=== PATIENT | female | born 1960 | race Caucasian/White ===

== ENCOUNTER 2022-07-31 08:02 | Outpatient (CLI) | payer OTHER, SELFPAY ==
[2022-07-31 11:15] LABS: Cholesterol* 185 mg/dL (90-199); Triglycerides* 175 mg/dL (40-149)
[2022-07-31 11:16] LABS: HDL Cholesterol* 54 mg/dL (>=50); LDL Cholesterol Calculated 96 mg/dL (<100)
== END 2022-07-31 08:03 | disposition home or self-care (01) ==
LOC: NFLDREF 08:02
PROVIDERS: PCP Internal Medicine; Visit Provider Internal Medicine
DX: E78.5 Hyperlipidemia, unspecified (principal)
CPT/HCPCS: 80061

== ENCOUNTER 2023-12-23 15:43 | Outpatient (CLI) | payer MEDICARE, BC, SELFPAY ==
--- OUTSIDE RECORDS SUMMARY | 2023-12-23 16:00 | XMS_ITS ---
Author Name Unknown Organization [facility] Address [address] [place] [address] Care Team Providers Care Retail Product Advisor Name Role Phone Unavailable Unavailable Unavailable Surgery Details Not on file Complications Check Surgery Details section. Procedure Estimated Blood Loss Check Surgery Details section. Procedure Findings Check Surgery Details section. Procedure Specimens Taken Check Surgery Details section.
--- OUTSIDE RECORDS SUMMARY | 2023-12-23 16:00 | XMS_ITS | Clinical Summary ---
Author Name Unknown Organization [facility] Address [address] [place] [address] Care Team Providers Care Chief Port Director Name Role Phone Elsewhere, Pcp Primary Care Provider Unavailabl e Source Comments Patient records contain information from all sites at [facility]. For routine questions regarding patient records, call [phone] during business hours, M-F 8:00 AM - 5:00 PM Central Time. Record requests for emergency care only can be directed to [phone] at any time.[facility] Allergies Active Allergy Reactions Criticality Noted Date Comments Tdajitj-Jjb-Yce Reductase Inhibitors Myalgia 01/30/2011 Medications Medication Sig Dispensed Refills Start Date End Date Status naratriptan (for_AMERGE) 2.5 mg tablet TAKE 1 TABLET BY MOUTH 1 TIME NEEDED FOR MIGRAINE HEADACHE. MARCH REPEAT 1 TIME IN 4 HOURS NEEDED 9 tablet 0 11/29/2017 Active atorvastatin (for_LIPITOR) 20 mg tablet Take 1 tablet (20 mg total) by mouth once daily. 90 tablet 3 01/10/2018 Active co-enzyme Q-10 (for_CO Q-10) 100 mg capsule Take 1 capsule by mouth daily. 0 01/31/2011 Active famotidine (for_PEPCID) 20 mg tablet Take 1 tablet by mouth 2 (two) times a day. 0 09/14/2012 Active atenolol (for_TENORMIN) 25 mg tablet Take 0.5 tablets by mouth daily. 0 09/14/2012 Active omega-3 fatty acids (FISH OIL CONCENTRATE) 1,000 mg capsule Take 1 capsule by mouth daily. 0 03/25/2015 Active levothyroxine (for_SYNTHROID, LEVOTHROID) 50 mcg tablet Take 1 tablet by mouth daily. 0 11/02/2016 Active Immunizations Name Administration Dates Next Due Influenza Split 09/05/2010 Influenza, Unspecified 08/25/2016,09/16/2015,11/2012,09/07/2012 Tdap 06/22/2011 Family History Medical History Relation Name Comments Parkinsons disease Father Parkinsons disease Grandfather Hyperlipidemia Mother Breast cancer Mother's Sister Breast cancer Paternal Grandmother Relation Name Status Comments Father Grandfather Mother Mother's Sister Age 63 Paternal Grandmother Age 80s Social History Tobacco Use Types Packs/Day Years Used Date Smoking Tobacco: Never Nutrition Answer Date Recorded Nutrition: EVOO Fat Source Unknown 01/21 Nutrition: Servings of Fruits/Vegetables per Day Not on file 01/21/2021 Dental Answer Date Recorded Dental: Regular Dentist Unknown 01/22/20 21 Sex and Gender Information Value Date Recorded Sex Assigned at Not on file Gender Identity Not on file Sexual Orientation Not on file Last Filed Vital Signs Vital Sign Reading Time Taken Comments Blood Pressure 123/80 12/17/2016 8:51 AM SINGING TEACHER Pulse 76 12/17/2016 8:51 AM SINGING TEACHER Temperature - - Respiratory Rate 16 12/17/2016 8:51 AM SINGING TEACHER Oxygen Saturation - - Inhaled Oxygen Concentration - - Weight 68.7 kg (151 lb 7.3 oz) 12/17/2016 8:51 A M SINGING TEACHER Height 167 cm (5' 5.75) 05/11/2017 8:06 AM CDT Body Mass Index 24.63 12/17/2016 8:51 AM SINGING TEACHER Plan of Treatment Health Maintenance Due Date Last Done Comments Bone Density Scan (Osteoporo sis Screen) 1958 CT Colonography 1958 FIT 1958 HIV Screening 1960 Hepatitis C Screening 1960 Thyroid Stimulating Hormone (TSH) test for thyroid function 05/11/2018 05/11/2017, 04/30/2016, 11/01/2014 Fasting Glucose for Diabetes Screening 04/30/2019 04/30/2016, 03/16/2013 Colonoscopy 05/06/2019 05/06/2009, 08/22 (Performed elsewhere) Cervical Cancer Screening 12/13/20202015, 09/15/2012, 10/11/2010 (Performed elsewhere) Influenza Vaccine (#1) 2023 2, 09/28/2021, 09/11/2020, Additional history exists Depression Screening (Annual PHQ-2) 11/22/2023 Fall Risk Screen (Annual) 11/22/2023 Mammogram 05/17/2024 05/17/2023, 04/23, 03/25/2021, Additional history exists Cologuard 04/27/2025 04/27/2022 Colorectal Cancer Screening 04/27/2025 DTaP,Tdap,and Td Vaccines (4 - Td or Tdap) 04/10/2031 04/10/2021, 07/08/2011, 06/22/2011 Zoster Vaccines Completed 10/06/2021, 07/29/2021 Pneumococcal vaccine (65+ years) Completed 04/13/20 23 COVID-19 Vaccine Completed 09/08/2023, , 04/03/2022, Additional history exists Advance Directives For more information, please contact: [phone] Documents on File Type Date Recorded Patient Wader Boot Top Assembler Expl anation Advance Directives 02/02/2011 12:00 AM Leg acy document. See document viewer. Advance Directives 02/02/2011 12:00 AM Leg acy document. See document viewer. Care Teams Chief Port Director Relationship Specialty Start Date End Date Elsewhere, Pcp PCP - General Family Medicine 04/23/21
--- OUTSIDE RECORDS SUMMARY | 2023-12-23 16:00 | XMS_ITS | Referral Summary ---
Author Name Unknown Organization [facility] Address [address] [place] [address] Care Team Providers Care Agricultural Engineering Technologist Name Role Phone Elsewhere, Pcp Primary Care Provider Unavailabl e Source Comments Patient records contain information from all sites at [facility]. For routine questions regarding patient records, call [phone] during business hours, M-F 8:00 AM - 5:00 PM Central Time. Record requests for emergency care only can be directed to [phone] at any time.[facility] Allergies Active Allergy Reactions Criticality Noted Date Comments Miyrmdb-Dtb-Jmh Reductase Inhibitors Myalgia 01/30/2011 Medications Medication Sig [...] Split 09/05/2010 Influenza, Unspecified 08/25/2016,09/16/2015,11/2012,09/07/2012 Tdap 06/22/2011 Social History Tobacco Use Types Packs/Day Years [...] Comments Blood Pressure 123/80 12/17/2016 8:51 AM MANAGER MEDICAID Pulse 76 12/17/2016 8:51 AM MANAGER MEDICAID Temperature - - Respiratory Rate 16 12/17/2016 8:51 AM MANAGER MEDICAID Oxygen Saturation - - Inhaled Oxygen Concentration - - Weight 68.7 kg (151 lb 7.3 oz) 12/17/2016 8:51 A M MANAGER MEDICAID Height 167 cm (5' 5.75) 05/11/2017 8:06 AM CDT Body Mass Index 24.63 12/17/2016 8:51 AM MANAGER MEDICAID Plan of Treatment Not on file Advance Directives For more information, please contact: [phone] Documents on File Type Date Recorded Patient Nurse Executive Expl anation Advance Directives 02/02/2011 12:00 AM Leg acy document. See document viewer. Advance Directives 02/02/2011 12:00 AM Leg acy document. See document viewer. Care Teams Agricultural Engineering Technologist Relationship Specialty Start Date End Date Elsewhere, Pcp PCP - General Family Medicine 04/23/21
--- OUTSIDE RECORDS SUMMARY | 2023-12-23 16:01 | XMS_ITS | Encounter Summary ---
Author Name Unknown Organization [facility] Address [address] [place] [address] Care Team Providers Care Tyre Retreader Name Role Phone Elsewhere, Pcp Primary Care Provider Unavailabl e Reason for Referral * Outpatient (Routine) - Closed Specialty Diagnoses / Procedures Referred By Maria ferrari Referred To Contact Diagnoses Screening Mammogram Breast Cancer Procedures BI Breast Screening Bilateral with Tomosynthesis Willem Webb M.B.B.S. [address] [place] [address] [facility] Referral ID Status Reason Start Date Expiration Date Visits Re quested Visits Authorized [id number] Closed 04/15/2023 04/14/2024 1 1 Reason for Visit * Outpatient (Routine) - Closed Specialty Diagnoses / Procedures Referred By Maria ferrrai Referred To Contact Diagnoses Screening Mammogram Breast Cancer Procedures BI Breast Screening Bilateral with Tomosynthesis Willem Webb M.B.B.S. [address] [place] [address] [facility] Referral ID Status Reason Start Date Expiration Date Visits Re quested Visits Authorized [id number] Closed 04/15/2023 04/14/2024 1 1 Encounter Details Date Type Department Care Team (Latest Contact Info) Description 05/17/2023 9:45 AM CDT - 05/17/2023 11:59 PM CDT Hospital Encounter Department of Radiology in [address] [id number] Willem Webb M.B.B.S. [address] [facility] [place] [phone] Screening Mammogram Breast Cancer Discharge Disposition: Home or Self Care Social History Tobacco Use Types Packs/Day Years [...] on file Sexual Orientation Not on file documented as of this encounter Medications at Time of Discharge Medication Sig Dispensed Refills Start Date End Date atenolol (for_TENORMIN) 25 mg tablet Take 0.5 tablets by mouth daily. 0 09/14/2012 co-enzyme Q-10 (for_CO Q-10) 100 mg capsule Take 1 capsule by mouth daily. 0 01/31/2011 famotidine (for_PEPCID) 20 mg tablet Take 1 tablet by mouth 2 (two) times a day. 0 09/14/2012 levothyroxine (for_SYNTHROID, LEVOTHROID) 50 mcg tablet Take 1 tablet by mouth daily. 0 11/02/2016 naratriptan (for_AMERGE) 2.5 mg tablet TAKE 1 TABLET BY MOUTH 1 TIME NEEDED FOR MIGRAINE HEADACHE. MARCH REPEAT 1 TIME IN 4 HOURS NEEDED 9 tablet 0 11/29/2017 omega-3 fatty acids (FISH OIL CONCENTRATE) 1,000 mg capsule Take 1 capsule by mouth daily. 0 03/25/2015 documented as of this encounter Plan of Treatment Not on file documented as of this encounter Procedures Procedure Name Priority Date/Time Associated Diagnosis Comments BI BREAST SCREENING BILATERAL WITH TOMOSYNTHESIS RAD - Routine (most inpatients and all outpatients) 05/17/2023 10:08 AM CDT Screening Mammogram Breast Cancer documented in this encounter Results * BI Breast Screening Bilateral with Tomosynthesis (05/17/2023 10:08 AM CDT) Anatomical Region Laterality Modality Breast, Breast Imaging RST L OS, Breast Imaging ARZ LOS, Breast Imaging FLA LOS Bilateral Mammography 05/17/2023 12:0 9 PM CDT Impressions 05/17/2023 12:10 PM CDT Negative. RECOMMENDATION: ??Annual Screening Mammogram ASSESSMENT: ??BI-RADS: 1: Negative. Narrative 05/17/2023 12:10 PM CDT EXAM: ??BI BREAST SCREENING BILATERAL WITH TOMOSYNTHESIS Current study was evaluated with a Computer Aided Detection (CAD) system. INDICATION: ??Screening mammogram. COMPARISON: ??Prior exam(s) were available and reviewed for comparison. DENSITY: ??b. There are scattered areas of fibroglandular density. FINDINGS: ??No mammographic findings of malignancy. Procedure Note Gregor Delgadillo M.D. - 05/17/2023 EXAM: BI BREAST SCREENING BILATERAL WITH TOMOSYNTHESIS Current study was evaluated with a Computer Aided Detection (CAD) system. INDICATION: Screening mammogram. COMPARISON: Prior exam(s) were available and reviewed for comparison. DENSITY: b. There are scattered areas of fibroglandular density. FINDINGS: No mammographic findings of malignancy. IMPRESSION: Negative. RECOMMENDATION: Annual Screening Mammogram ASSESSMENT: BI-RADS: 1: Negative. Willem Lyn IMG BI PROCEDU RES documented in this encounter Visit Diagnoses Diagnosis Screening Mammogram Breast Cancer documented in this encounter Care Teams Tyre Retreader Relationship Specialty Start Date End Date Elsewhere, Pcp PCP - General Family Medicine 04/23/21 documented as of this encounter
--- OUTSIDE RECORDS SUMMARY | 2023-12-23 16:01 | XMS_ITS | Encounter Summary ---
Author Name Unknown Organization [facility] Address [address] [place] [address] Care Team Providers Care Motor Generator Set Operator Name Role Phone Elsewhere, Pcp Primary Care Provider Unavailabl e Encounter Details Date Type Department Care Team (Late st Contact Info) Description 03/09/2011 Historical Ophthalmology RST OPH Hipolito Peralta O.D. [address] [place] [address] Social History Tobacco Use Types Packs/Day Years Used Date Smoking Tobacco: Never Assessed Sex and Gender Information Value Date Recorded Sex Assigned at Not on file Gender Identity Not on file Sexual Orientation Not on file documented as of this encounter Progress Notes * Hipolito Peralta O.D. - 03/09/2011 1:13 PM CDT Eye General CHIEF COMPLAINT floaters/last exam 1 year ago HISTORY OF PRESENT ILLNESS Patient reports no change in vision. Patient denies pain, flashes or diplopia. Floaters alone; both eyes; x 1 year; on and off-no new floaters. IMPRESSION / REPORT / PLAN #1 Vitreous floaters Discussed signs and symptoms of retinal tear and detachment and the need for prompt evaluation should this occur #2 Refractive error Gave copy of manifest Rx DIAGNOSIS #1 Vitreous floaters #2 Refractive error CDM Reports - EYEGEN Id: [id number] Status: Fnl documented in this encounter Plan of Treatment Not on file documented as of this encounter Visit Diagnoses Not on filedocumented in this encounter Additional Health Concerns Infection Onset Date Last Indicated Resolved Time COVID19 Pending 10/04/2020 10/04/2020 10/05/2020 5 :19 PM LEATHER CARVER COVID19 Pending 10/21/2020 10/21/2020 10/22/2020 9 :10 AM LEATHER CARVER COVID19 Pending 10/21/2020 10/21/2020 10/23/2020 6 :52 AM LEATHER CARVER documented as of this encounter Care Teams Motor Generator Set Operator Relationship Specialty Start Date End Date Elsewhere, Pcp PCP - General Family Medicine 04/23/21 documented as of this encounter
== END 2023-12-23 15:44 | disposition home or self-care (01) ==
PROVIDERS: PCP Internal Medicine; Visit Provider Internal Medicine
DX: E03.8 Other specified hypothyroidism (principal); I10 Essential (primary) hypertension; Z13.21 Encounter for screening for nutritional disorder
CPT/HCPCS: 80053; 82550; 82607; 83735; 84439; 84443; 84481

== ENCOUNTER 2024-04-11 07:32 | Outpatient (CLI) | payer MEDICARE, BC, SELFPAY ==
--- OUTSIDE RECORDS SUMMARY | 2024-04-29 21:30 | XMS_ITS | Clinical Summary ---
Author Organization [facility] Address [address] [place] [address] Care Team Providers Care Client Technical Specialist Name Role Phone Elsewhere, Pcp Primary Care Provider Unavailabl e Source Comments Patient records contain information from all sites at [facility]. For routine questions regarding patient records, call [phone] during business hours, M-F 8:00 AM - 5:00 PM Central Time. Record requests for emergency care only can be directed to [phone] at any time.[facility] Allergies Active Allergy Reactions Criticality Noted Date Comments Krcfqvm-Rtb-Rmp Reductase Inhibitors Myalgia 01/30/2011 Medications Medication Sig Dispensed Refills Start Date End Date Status naratriptan (for_AMERGE) 2.5 mg tablet TAKE 1 TABLET BY MOUTH 1 TIME NEEDED FOR MIGRAINE HEADACHE. MARCH REPEAT 1 TIME IN 4 HOURS NEEDED 9 tablet 11/29/2017 Active atorvastatin (for_LIPITOR) 20 mg tablet Take 1 tablet (20 mg total) by mouth once daily. 90 tablet 3 01/10/2018 Active co-enzyme Q-10 (for_CO Q-10) 100 mg capsule Take 1 capsule by mouth daily. 01/31/2011 Active famotidine (for_PEPCID) 20 mg tablet Take 1 tablet by mouth 2 (two) times a day. 09/14/2012 Active atenolol (for_TENORMIN) 25 mg tablet Take 0.5 tablets by mouth daily. 09/14/2012 Active omega-3 fatty acids (FISH OIL CONCENTRATE) 1,000 mg capsule Take 1 capsule by mouth daily. 03/25/2015 Active levothyroxine (for_SYNTHROID, LEVOTHROID) 50 mcg tablet Take 1 tablet by mouth daily. 11/02/2016 Active Immunizations Name Administration Dates Next [...] Comments Blood Pressure 123/80 12/17/2016 8:51 AM BUDGET OFFICER Pulse 76 12/17/2016 8:51 AM BUDGET OFFICER Temperature - - Respiratory Rate 16 12/17/2016 8:51 AM BUDGET OFFICER Oxygen Saturation - - Inhaled Oxygen Concentration - - Weight 68.7 kg (151 lb 7.3 oz) 12/17/2016 8:51 A M BUDGET OFFICER Height 167 cm (5' 5.75) 05/11/2017 8:06 AM CDT Body Mass Index 24.63 12/17/2016 8:51 AM BUDGET OFFICER Plan of Treatment Health Maintenance Due Date Last Done Comments Bone Density Scan (Osteoporo sis Screen) 1958 CT Colonography 1958 FIT 1960 Hepatitis C Screening 1960 Thyroid Stimulating Hormone (TSH) test for thyroid function 05/11/2018 05/11/2017, 04/30/2016, 11/01/2014 Fasting Glucose for Diabetes Screening 04/30/2019 04/30/2016, 03/16/2013 Colonoscopy 05/06/2019 05/06/2009, 08/22 (Performed elsewhere) Cervical Cancer Screening 12/13/20202015, 09/15/2012, 10/11/2010 (Performed elsewhere) Influenza Vaccine (#1) 2023 2, 09/28/2021, 09/11/2020, Additional history exists Depression Screening (Annual PHQ-2) 11/22/2023 Fall Risk Screen (Annual) 11/22/2023 COVID-19 Vaccine (7 2022-2 4 season) 2024 09/08/2023, 09/17/2022, 04/03/2022, Additional history exists Mammogram 05/17/2024 05/17/2023, 0602/2022, 03/25/2021, Additional history exists Cologuard 04/27/2025 04/27/2022 Colorectal Cancer Screening 04/27/2025 DTaP,Tdap,and Td Vaccines (4 - Td or Tdap) 04/10/2031 04/10/2021, 07/08/2011, 06/22/2011 Zoster Vaccines Completed 10/06/2021, 07/29/2021 Pneumococcal vaccine (65+ years) Completed 04/13/20 23 Procedures Procedure Name Priority Date/Time Associated Diagnosis Comments BI BREAST SCREENING BILATERAL WITH TOMOSYNTHESIS RAD - Routine (most inpatients and all outpatients) 05/17/2023 10:08 AM CDT Screening Mammogram Breast Cancer THYROID-STIMULATING HORMONE-SENSITIVE (S-TSH) Routine 05/11/2017 8:16 AM CDT GLUCOSE, FASTING, S/P Routine 04/30/2016 8:04 AM CDT THINPREP SCREEN HPV REFLEX Routine 12/13/2015 12:52 PM BUDGET OFFICER from Last 3 Months or Most Recently Relevant to Health Maintenance Results * BI Breast Screening Bilateral with [...] Mammogram ASSESSMENT: BI-RADS: 1: Negative. Willem Lyn [facility] BI PROCEDU RES * S-TSH (Thyroid-Stimulating Hormone - Sensitive) (05/11/2017 8:16 AM CDT) TSH (Thyrotropin) 2.28 0.27 - 4.20 MIUL POWERCHART Comment: Biotin has been identified by the machine washer as a potential interfering substance. Higher concentrations of biotin may be found in multivitamins, hair/nail supplements, and workout supplements. If the result does not match clinical observations, repeat testing after patient refrains from the use of supplements for at least 12 hours. Blood 05/11/2017 8:16 AM CDT Violet Peres APRN, C.N.P. LAB BLOOD ADD-ON POWERCHART * Glucose, Fasting (04/30/2016 8:04 AM CDT) Glucose, Fasting, S 89 70 - 99 MGDL POWERCHART Blood 04/30/2016 8:04 AM CDT Violet Peres APRN, C.N.P. LAB BLOOD NON ADD-ON POWERCHART * Pathology ThinPrep Screen HPV Reflex (12/13/2015 12:52 PM BUDGET OFFICER) [facility] [id number] POWERCHART HXFinal Diagnosis-[place] See Comment POWERCHART Comment: A. ??ThinPrep Pap Test Screen (Cervical/Endocervical HPV >= 30 years old): Satisfactory for evaluation. Scanty cellularity. Negative for intraepithelial lesion or malignancy. High Risk HPV testing results are NEGATIVE. See specific genotype results below. HPV with Genotyping, PCR, ThinPrep: HPV High Risk Type 16, PCR: ??NEGATIVE HPV High Risk Type 18, PCR: ??NEGATIVE HPV other High Risk types, PCR: ??NEGATIVE Other High Risk HPV types include: ??31, 33, 35, 39, 45, 51, 52, 56, 58, 59, 66, and 68. [facility] See Comment POWERCHART Comment: Report electronically signed by Ady Dominguez, SCT(ASCP) 12/24/2015 10:07 Interpreted by: Dev Grady, MEREDITH(ASCP) Cervix/Endocervix 12/13/2015 12:52 PM BUDGET OFFICER Violet Peres APRN, C.N.P. LAB PAP P ATHDX ORDERABLES POWERCHART from Last 3 Months or Most Recently Relevant to Health Maintenance Advance Directives For more information, please contact: [phone] Documents on File Type Date Recorded Patient Collar Turner Operator Expl anation Advance Directives 02/02/2011 12:00 AM Leg acy document. See document viewer. Advance Directives 02/02/2011 12:00 AM Leg acy document. See document viewer. Care Teams Client Technical Specialist Relationship Specialty Start Date End Date Elsewhere, Pcp PCP - General Family Medicine 04/23/21
--- OUTSIDE RECORDS SUMMARY | 2024-04-29 21:30 | XMS_ITS ---
Author Organization [facility] Address [address] [place] [address] Care Team Providers Care Utility Maintenance Worker Name Role Phone Unavailable Unavailable Unavailable Surgery Details Not on file Complications Check Surgery Details section. Procedure Estimated Blood Loss Check Surgery Details section. Procedure Findings Check Surgery Details section. Procedure Specimens Taken Check Surgery Details section.
--- OUTSIDE RECORDS SUMMARY | 2024-04-29 21:30 | XMS_ITS | Encounter Summary ---
Author Organization [facility] Address [address] [place] [address] Care Team Providers Care Rotary Furnace Tender Name Role Phone Elsewhere, Pcp Primary Care Provider Unavailabl e Encounter Details Date Type Department Care Team (Late st Contact Info) Description 03/09/2011 Historical Ophthalmology RST OPH Hipolito Peralta O.D. [address] [place] [address] Social History Tobacco Use Types Packs/Day Years [...] Refractive error CDM Reports - EYEGEN Id: [id number] Status: Fnl documented in this encounter Plan of Treatment Not on file documented as of this encounter Visit Diagnoses Not on filedocumented in this encounter Additional Health Concerns Infection Onset Date Last Indicated Resolved Time COVID19 Pending 10/04/2020 10/04/2020 10/05/2020 5 :19 PM ENOLOGIST COVID19 Pending 10/21/2020 10/21/2020 10/22/2020 9 :10 AM ENOLOGIST COVID19 Pending 10/21/2020 10/21/2020 10/23/2020 6 :52 AM ENOLOGIST documented as of this encounter Care Teams Rotary Furnace Tender Relationship Specialty Start Date End Date Elsewhere, Pcp PCP - General Family Medicine 04/23/21 documented as of this encounter
--- OUTSIDE RECORDS SUMMARY | 2024-04-29 21:30 | XMS_ITS | Referral Summary ---
Author Organization [facility] Address [address] [place] [address] Care Team Providers Care Qualifications Examiner Name Role Phone Elsewhere, Pcp Primary Care Provider Unavailabl e Source Comments Patient records contain information from all sites at [facility]. For routine questions regarding patient records, call [phone] during business hours, M-F 8:00 AM - 5:00 PM Central Time. Record requests for emergency care only can be directed to [phone] at any time.[facility] Allergies Active Allergy Reactions Criticality Noted Date Comments Hcxkjvb-Ipm-Oox Reductase Inhibitors Myalgia 01/30/2011 Medications Medication Sig [...] Comments Blood Pressure 123/80 12/17/2016 8:51 AM EYE SURGEON Pulse 76 12/17/2016 8:51 AM EYE SURGEON Temperature - - Respiratory Rate 16 12/17/2016 8:51 AM EYE SURGEON Oxygen Saturation - - Inhaled Oxygen Concentration - - Weight 68.7 kg (151 lb 7.3 oz) 12/17/2016 8:51 A M EYE SURGEON Height 167 cm (5' 5.75) 05/11/2017 8:06 AM CDT Body Mass Index 24.63 12/17/2016 8:51 AM EYE SURGEON Plan of Treatment Not on file Procedures Procedure Name Priority Date/Time Associated Diagnosis Comments BI BREAST SCREENING BILATERAL WITH TOMOSYNTHESIS RAD - Routine (most inpatients and all outpatients) 05/17/2023 10:08 AM CDT Screening Mammogram Breast Cancer THYROID-STIMULATING HORMONE-SENSITIVE (S-TSH) Routine 05/11/2017 8:16 AM CDT GLUCOSE, FASTING, S/P Routine 04/30/2016 8:04 AM CDT THINPREP SCREEN HPV REFLEX Routine 12/13/2015 12:52 PM EYE SURGEON from Last 3 Months or Most Recently [...] Mammogram ASSESSMENT: BI-RADS: 1: Negative. Willem Lyn [facility] BI PROCEDU RES * S-TSH (Thyroid-Stimulating Hormone - Sensitive) (05/11/2017 8:16 AM CDT) TSH (Thyrotropin) 2.28 0.27 - 4.20 MIUL POWERCHART Comment: Biotin has been identified by the nozzle operator as a potential interfering substance. Higher concentrations [...] ThinPrep Screen HPV Reflex (12/13/2015 12:52 PM EYE SURGEON) HXAccession [facility] [id number] POWERCHART H[facility]Final [facility] See Comment POWERCHART Comment: A. ??ThinPrep Pap [...] 52, 56, 58, 59, 66, and 68. [facility] See Comment POWERCHART Comment: Report electronically signed by Ady Dominguez, SCT(ASCP) 12/24/2015 10:07 Interpreted by: Dev Grady, MEREDITH(ASCP) Cervix/Endocervix 12/13/2015 12:52 PM EYE SURGEON Violet Peres APRN, C.N.P. LAB PAP P ATHDX ORDERABLES POWERCHART from Last 3 Months or Most Recently Relevant to Health Maintenance Advance Directives For more information, please contact: [phone] Documents on File Type Date Recorded Patient Train Control Technician Expl anation Advance Directives 02/02/2011 12:00 AM Leg acy document. See document viewer. Advance Directives 02/02/2011 12:00 AM Leg acy document. See document viewer. Care Teams Qualifications Examiner Relationship Specialty Start Date End Date Elsewhere, Pcp PCP - General Family Medicine 04/23/21
== END 2024-04-11 07:33 | disposition home or self-care (01) ==
LOC: NFLDREF 04-29 21:28
PROVIDERS: PCP Internal Medicine; Referring Provider Internal Medicine; Visit Provider Internal Medicine
DX: E78.5 Hyperlipidemia, unspecified (principal); E03.8 Other specified hypothyroidism
CPT/HCPCS: 80061; 84439; 84443

== ENCOUNTER 2024-05-12 10:11 | Outpatient (CLI) | payer MEDICARE, BC, SELFPAY ==
--- OUTSIDE RECORDS SUMMARY | 2024-05-16 20:21 | XMS_ITS ---
Author Organization [facility] Address [address] [place] [address] Care Team Providers Care Casting Machine Operator Name Role Phone Unavailable Unavailable Unavailable Surgery Details Not on file Complications Check Surgery Details section. Procedure Estimated Blood Loss Check Surgery Details section. Procedure Findings Check Surgery Details section. Procedure Specimens Taken Check Surgery Details section.
--- OUTSIDE RECORDS SUMMARY | 2024-05-16 20:21 | XMS_ITS | Clinical Summary ---
Author Organization [facility] Address [address] [place] [address] Care Team Providers Care Business Department Chair Name Role Phone Elsewhere, Pcp Primary Care Provider Unavailabl e Source Comments Patient records contain information from all sites at [facility]. For routine questions regarding patient records, call [phone] during business hours, M-F 8:00 AM - 5:00 PM Central Time. Record requests for emergency care only can be directed to [phone] at any time.[facility] Allergies Active Allergy Reactions Criticality Noted Date Comments Hreolbc-Hsq-Tka Reductase Inhibitors Myalgia 01/30/2011 Medications Medication Sig [...] Comments Blood Pressure 123/80 12/17/2016 8:51 AM VIOLIN TEACHER Pulse 76 12/17/2016 8:51 AM VIOLIN TEACHER Temperature - - Respiratory Rate 16 12/17/2016 8:51 AM VIOLIN TEACHER Oxygen Saturation - - Inhaled Oxygen Concentration - - Weight 68.7 kg (151 lb 7.3 oz) 12/17/2016 8:51 A M VIOLIN TEACHER Height 167 cm (5' 5.75) 05/11/2017 8:06 AM CDT Body Mass Index 24.63 12/17/2016 8:51 AM VIOLIN TEACHER Plan of Treatment Upcoming Encounters Date Type Department Care Team (Late st Contact Info) Description 05/19/2024 9:15 AM CDT Appointment Department of Radiology in [address] [phone] Juan Carlos Barboza M.D. [address] [place] [address] Discharge Disposition: Home or Self Care Health Maintenance Due Date Last Done Comments Bone Density Scan (Osteoporo sis Screen) 1958 CT Colonography 1960 FIT 1960 Hepatitis C Screening 1960 Thyroid Stimulating Hormone (TSH) test for thyroid function 05/11/2018 05/11/2017, 04/30/2016, 11/01/2014 Fasting Glucose for Diabetes Screening 04/30/2019 04/30/2016, 03/16/2013 Colonoscopy 05/06/2019 05/06/2009, 08/22 (Performed elsewhere) Cervical Cancer Screening 12/13/20202015, 09/15/2012, 10/11/2010 (Performed elsewhere) Influenza Vaccine (#1) 2023 , 09/28/2021, 09/11/2020, Additional history exists Depression Screening (Annual PHQ-2) 11/22/2023 Fall Risk Screen (Annual) 11/22/2023 COVID-19 Vaccine (2022-2 4 season) 2024 09/08/2023, 09/17/2022, 04/03/2022, Additional history exists Mammogram 05/17/2024 05/17/2023, 04/23, 03/25/2021, Additional history [...] SCREEN HPV REFLEX Routine 12/13/2015 12:52 PM VIOLIN TEACHER from Last 3 Months or Most Recently [...] Mammogram ASSESSMENT: BI-RADS: 1: Negative. Willem Lyn [facility] BI PROCEDU RES * S-TSH (Thyroid-Stimulating Hormone - Sensitive) (05/11/2017 8:16 AM CDT) TSH (Thyrotropin) 2.28 0.27 - 4.20 MIUL POWERCHART Comment: Biotin has been identified by the defective cigarette slitter as a potential interfering substance. Higher concentrations [...] MGDL POWERCHART Blood 04/30/2016 8:04 AM CDT Ana Maria Oconnor APRN.N.P. LAB BLOOD NON ADD-ON Performing Organization Address City/State/[facility] Co de Phone Number POWERCHART * Pathology ThinPrep Screen HPV Reflex (12/13/2015 12:52 PM VIOLIN TEACHER) HXAccession [facility] [id number] POWERCHART HXFinal [facility] See Comment POWERCHART Comment: A. ??ThinPrep Pap [...] 52, 56, 58, 59, 66, and 68. [facility] See Comment POWERCHART Comment: Report electronically signed by Ady Dominguez, SCT(ASCP) 12/24/2015 10:07 Interpreted by: Dev Grady, MEREDITH(ASCP) Cervix/Endocervix 12/13/2015 12:52 PM VIOLIN TEACHER Violet Peres APRN C.N.P. 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 See document viewer. Advance Directives 02/02/2011 12:00 AM Leg acy document. See document viewer. Care Teams Business Department Chair Relationship Specialty Start Date End Date Elsewhere, Pcp PCP - General Family Medicine 04/23/21
--- OUTSIDE RECORDS SUMMARY | 2024-05-16 20:21 | XMS_ITS | Referral Summary ---
Author Organization [facility] Address [address] [place] [address] Care Team Providers Care Manager Packaging Name Role Phone Elsewhere, Pcp Primary Care Provider Unavailabl e Source Comments Patient records contain information from all sites at [facility]. For routine questions regarding patient records, call [phone] during business hours, M-F 8:00 AM - 5:00 PM Central Time. Record requests for emergency care only can be directed to [phone] at any time.[facility] Allergies Active Allergy Reactions Criticality Noted Date Comments Oshxsnz-Che-Akp Reductase Inhibitors Myalgia 01/30/2011 Medications Medication Sig [...] Comments Blood Pressure 123/80 12/17/2016 8:51 AM CARE MANAGEMENT COORDINATOR Pulse 76 12/17/2016 8:51 AM CARE MANAGEMENT COORDINATOR Temperature - - Respiratory Rate 16 12/17/2016 8:51 AM CARE MANAGEMENT COORDINATOR Oxygen Saturation - - Inhaled Oxygen Concentration - - Weight 68.7 kg (151 lb 7.3 oz) 12/17/2016 8:51 A M CARE MANAGEMENT COORDINATOR Height 167 cm (5' 5.75) 05/11/2017 8:06 AM CDT Body Mass Index 24.63 12/17/2016 8:51 AM CARE MANAGEMENT COORDINATOR Plan of Treatment Upcoming Encounters Date Type Department Care Team (Late st Contact Info) Description 05/19/2024 9:15 AM CDT Appointment Department of Radiology in [address] [phone] Juan Carlos Barboza M.D. [address] [place] [address] Discharge Disposition: Home or Self Care Procedures Procedure Name Priority Date/Time Associated Diagnosis Comments BI BREAST SCREENING BILATERAL WITH TOMOSYNTHESIS RAD - Routine (most inpatients and all outpatients) 05/17/2023 10:08 AM CDT Screening Mammogram Breast Cancer THYROID-STIMULATING HORMONE-SENSITIVE (S-TSH) Routine 05/11/2017 8:16 AM CDT GLUCOSE, FASTING, S/P Routine 04/30/2016 8:04 AM CDT THINPREP SCREEN HPV REFLEX Routine 12/13/2015 12:52 PM CARE MANAGEMENT COORDINATOR from Last 3 Months or Most Recently [...] Screening Mammogram ASSESSMENT: BI-RADS: 1: Negative. Willem M[facility]ENDON BI PROCEDU RES * S-TSH (Thyroid-Stimulating Hormone - Sensitive) (05/11/2017 8:16 AM CDT) TSH (Thyrotropin) 2.28 0.27 - 4.20 MIUL POWERCHART Comment: Biotin has been identified by the marketing communications specialist as a potential interfering substance. Higher concentrations of biotin may be found in multivitamins, hair/nail supplements, and workout supplements. If the result does not match clinical observations, repeat testing after patient refrains from the use of supplements for at least 12 hours. Blood 05/11/2017 8:16 AM CDT Violet Peres APRN C.N.P. LAB BLOOD ADD-ON Performing Organization Address [facility] de Phone Number POWERCHART * Glucose, Fasting (04/30/2016 8:04 AM CDT) Glucose, Fasting, S 89 70 - 99 MGDL POWERCHART Blood 04/30/2016 8:04 AM CDT Violet Peres APRN C.N.P. LAB BLOOD NON ADD-ON Performing Organization Address [facility] de Phone Number POWERCHART * Pathology ThinPrep Screen HPV Reflex (12/13/2015 12:52 PM CARE MANAGEMENT COORDINATOR) HXAccession [facility] [id number] POWERCHART HXFinal [facility] See Comment POWERCHART Comment: A. ??ThinPrep [...] 52, 56, 58, 59, 66, and 68. [facility] See Comment POWERCHART Comment: Report electronically signed by Ady Dominguez, SCT(ASCP) 12/24/2015 10:07 Interpreted by: Dev Grady, MEREDITH(ASCP) Cervix/Endocervix 12/13/2015 12:52 PM CARE MANAGEMENT COORDINATOR Ana Maria Oconnor APRN.N.P. LAB PAP P ATHDX ORDERABLES Performing Organization Address [facility]/ZIP Co de Phone Number POWERCHART from Last 3 Months or Most Recently Relevant to Health Maintenance Advance Directives For more information, please contact: [phone] Documents on File Type Date Recorded Patient Showroom Sales Consultant Expl anation Advance Directives 02/02/2011 12:00 AM Leg acy document. See document viewer. Advance Directives 02/02/2011 12:00 AM Leg acy document. See document viewer. Care Teams Manager Packaging Relationship Specialty Start Date End Date Elsewhere, Pcp PCP - General Family Medicine 04/23/21
--- OUTSIDE RECORDS SUMMARY | 2024-05-16 20:21 | XMS_ITS | Encounter Summary ---
Author Organization [facility] Address [address] [place] [address] Care Team Providers Care Power Transformer Assembler Name Role Phone Elsewhere, Pcp Primary Care Provider Unavailabl e Encounter Details Date Type Department Care Team (Late st Contact Info) Description 03/09/2011 Historical Ophthalmology RST OPH Hipolito Peralta O.D. [address] [place] [phone] Social History Tobacco Use Types Packs/Day Years [...] Refractive error CDM Reports - EYEGEN Id: [id number] Status: Fnl documented in this encounter Plan of Treatment Upcoming Encounters Date Type Department Care Team (Late st Contact Info) Description 05/19/2024 9:15 AM CDT Appointment Department of Radiology in [address] [place] [address] Juan Carlos Barboza M.D. [address] [place] [address] Discharge Disposition: Home or Self Care documented as of this encounter Visit Diagnoses Not on filedocumented in this encounter Additional Health Concerns Infection Onset Date Last Indicated Resolved Time COVID19 Pending 10/04/2020 10/04/2020 10/05/2020 5 :19 PM OPERATING ROOM TECH COVID19 Pending 10/21/2020 10/21/2020 10/22/2020 9 :10 AM OPERATING ROOM TECH COVID19 Pending 10/21/2020 10/21/2020 10/23/2020 6 :52 AM OPERATING ROOM TECH documented as of this encounter Care Teams Power Transformer Assembler Relationship Specialty Start Date End Date Elsewhere, Pcp PCP - General Family Medicine 04/23/21 documented as of this encounter
== END 2024-05-12 10:12 | disposition home or self-care (01) ==
LOC: NFLDREF 05-16 20:20
PROVIDERS: PCP Internal Medicine; Referring Provider Internal Medicine; Visit Provider Obstetrics & Gynecology
DX: R33.9 Retention of urine, unspecified (principal)
CPT/HCPCS: 87086

== ENCOUNTER 2024-09-28 09:30 | Outpatient (RCR) | payer MEDICARE, BC, SELFPAY ==
--- NOTE | 2024-07-12 13:06 | PT.OPEX ---
PT [place] Outpatient Eval PT [facility] Outpatient Eval Start: 07/04/24 12:12 Freq: Status: Active Protocol: Document 07/12/24 08:06 JIM (Rec: 07/12/24 08:13 JIM [id number]) E-signed By Eneida Parra PT Physical Therapy Outpatient Evaluation Insurance Information Recert Due Date 10/10/24 Insurance Name Medicare B,Blue Cross/Blue Shield Medical Diagnosis Pelvic organ prolapse - stage 3 rectocele chronic constipation Treating Diagnosis rectocele constipation lack of muscle coordination Referring MD Dr Dallas Dallas Grace presents with diagnosis of rectocele (grade 3) and issues of chronic constipation . Pt is unsure of when her symptoms started but felt like she struggled with issues of constipation around time of menopause, approx 12 years ago . Pt was diagnosed with a rectocele and cystocele approx 1 year ago by her PCP. Was referred to [facility] and diagnosed with a larger rectocele and small cystocele. She was fit with a pessary but has not tolerated it well so she is not using it. Pt has a long history of not being able to tolerate tampons. Her symptoms are of difficulty pelvic pressure and LBP, occ feeling of tissue at opening of vagina, difficulty with emptying bowel, and feeling of constipation is she is not able to defecate during the day. She has approx 5 BMs per week. Days she is not able to defecate has symptoms of constipation and LBP. Has type 4-7 on the [place] Stool Chart Overall her bladder function is good with just mild SHE symptoms with jumping on trampoline or with cough/ sneeze. Pt denies any concerns /dysfunctions with her sexual activity. Goals for therapy include to improve POP symptoms and try to avoid surgery. Date of Last Physician Visit 05/13/24 Precautions Treatment Precautions/Contraindications depression fibromyalgia HTN Objective Functional Test Performed & Score PF questionnaire: Bladder function: Bowel function: Prolapse symptoms: 2 Sexual function: 040 Assessment Assessment/Impression 64 yo client presents with symptoms of rectocele and constipation. With questioning, pt is doing well with diet and fluid intake. Does admit to needing to push/ valsalva to try to evacuate stool fully. At times will need to assist digitally to remove stool, and can struggle with rectal spasms. Did not have time to assess her PFM function today. With her current symptoms that are related to POP, PFD, and PFM hyperactivity/high tone, she is appropriate for further PT services. Will continue with skilled PT services including use of therapeutic exercise, therapeutic activities, neuromuscular re-ed, manual therapy, and self cares for symptom reduction. Plan of Care Rehabilitation Potential Good Physical Therapy Goals Short term goals to be achieved in 4 weeks. 1. Pt will report a reduction in her LBP by >50% or more for ease with ADLs and recreational activities. 2. Pt will demonstrate decreased resting tone/muscle activity at rest and following a PFM contraction (<3 microvolts) to restore appropriate PFM tone/activity. 3. Pt able to demonstrate correct posture and pushing mechanics when defecating. intermediate card tender goals to be achieved in 12 weeks. 1. Pt will be independent with home program for POP symptom reduction and improvement in her PFM coordination. 2. Pt will report a reduction in her POP symptoms to <2/10 severity rating, for ability to return to all ADLs and fitness activities safely. 3. Pt will be able to demonstrate proper mechanics with lifting/carrying, including ability to manage IAP, to reduce SHE symptoms. 4. Pt will report ability to defecate without need to digitally remove stool 80% of the time or greater. Coordination/Communication With Referral Source Treatment Plan/Direct Interventions Manual Therapy,Neuromuscular Re-ed,Self-Care/Home Management,Therapeutic Activities,Therapeutic Exercises Frequency/Duration 1 time a week for up to 12 visits Patient Will Be Discharged From Therapy Completion of LTG(s),Skills Plateau,Independent w/HEP, Independently Progressing Evaluation Billing Untimed Code Treatment Minutes 35 Complexity Moderate Certification Information Initial Certification Date 07/12/24 Ending Certification Date 10/10/24 Provider Signature Required Yes Provider Signature Shows Agreement With POC & Medical Necessity Physician NPI Number Write NPI# Here Physician Comment/Change : Physician Signature & Date Requested Please Sign/Date Here
== END 2025-01-26 23:59 | disposition home or self-care (01) ==
PROVIDERS: PCP Internal Medicine; Visit Provider Obstetrics & Gynecology
DX: N81.6 Rectocele (principal); K59.09 Other constipation; G89.29 Other chronic pain; R27.8 Other lack of coordination; Z51.89 Encounter for other specified aftercare
CPT/HCPCS: 97110; 97140; 97162; 97530; 97535

== ENCOUNTER 2025-04-23 08:04 | Outpatient (CLI) | payer MEDICARE, BC, SELFPAY | END 2025-04-23 08:05 | disposition home or self-care (01) | LOC: NFLDREF 19:01 | PROVIDERS: PCP Internal Medicine; Referring Provider Internal Medicine; Visit Provider Internal Medicine | DX: E78.5 Hyperlipidemia, unspecified (principal); E03.8 Other specified hypothyroidism | CPT/HCPCS: 80061; 84439; 84443 ==

== ENCOUNTER 2025-07-12 15:04 | Outpatient (CLI) | payer MEDICARE, BC, SELFPAY | END 2025-07-12 15:05 | disposition home or self-care (01) | LOC: NFLDREF 07-17 14:21 | PROVIDERS: PCP Internal Medicine; Referring Provider Internal Medicine; Visit Provider Internal Medicine | DX: E83.52 Hypercalcemia (principal) | CPT/HCPCS: 82310 ==

== ENCOUNTER 2025-08-30 12:44 | Outpatient (CLI) | payer MEDICARE, BC, SELFPAY ==
--- NOTE | 2025-08-30 13:00 | CRLHL7_ITS ---
For Patients: As a result of the Century Cures Act, medical imaging exams and procedure reports are released immediately into your electronic medical record. You may view this report before your referring provider. If you have questions, please contact your health care provider. XR DXA BONE MINERAL DENSITY (BMD) Current height (in): 66.0. Weight (lb): 155.0. Menopause age: 51. Ethnicity: White. Reason for exam: Assess bone density prior to initiating endocrine therapy for breast cancer. 1. Have you had a previous hip or vertebral fracture? No. 2. Have you had any fractures during your adult life which did not result from significant trauma (e.g., auto accident)? No. 3. Did either of your parents have a hip fracture? No. 4. Do you smoke? No. 5. Have you ever taken Glucocorticoids? No. 6. Do you have rheumatoid arthritis? No. 7. Do you have secondary osteoporosis? No. 8. Do you drink 3 or more alcoholic drinks per day? No. 9. Are you being treated for osteoporosis? No. 10. Have you ever taken any of the following medications: Actonel, Evista, Fosamax, Miacalcin, Reclast, Boniva, Forteo, HRT (i.e. estrogen/hormone therapy), Protelos, Prolia, Vitamin D, Calcium, other ??? please specify. ANSWER: Yes, vitamin D, calcium. 11. Do you have any of the following medical conditions: Anorexia or bulimia, asthma or emphysema, end stage renal disease, hyperparathyroidism, any seizure disorders, cancer, inflammatory bowel diseases, hysterectomy, other ??? please specify. ANSWER: Yes, cancer. 12. What was your maximum height (inches)? 66. 13. Do you perform weight bearing exercise regularly? Yes. 14. Do you regularly consume dairy products? Yes. 15. Do you drink caffeinated beverages? No. 16. At what age did your period start? 12. 17. Are you premenopausal? No. 18. How many full-term pregnancies have you had? 3. 19. Have you ever missed your period for more than 6 months in a row (not including or menopause)? No. TECHNIQUE: Bone mineral density study was performed using the Flyr. FINDINGS: The results of the study expressed as bone mineral density (BMD) are as follows: Lumbar spine L1 to L4: BMD: 1.291 g/cm2. T-score: 2.2. Z-score: 4.2 Neck Left: BMD: 0.779 g/cm2. T-score: -0.6. Z-score: 1.0 Right: BMD: 0.772 g/cm2. T-score: -0.7. Z-score: 1.0 Total Left: BMD: 1.142 g/cm2. T-score: 1.6. Z-score: 3.0 Right: BMD: 1.025 g/cm2. T-score: 0.7. Z-score: 2.0 IMPRESSION: Normal bone density. *Comparison exams done prior to 04/2020 were performed on different unit, [facility]. COMPARISON: Compared with scan of 03/09/2019, the bone mineral density has decreased by 7.5 percent at the spine and increased by 8.4 percent at the hip. Kelton Garcia M.D. Diagnostic Radiologist [email or web address] Transcribed: 2:41 pm DW/Dictated by: Kelton Garcia MD @ 08/30/2025 2:27:00 PM (Electronically Signed)
== END 2025-08-30 12:45 | disposition home or self-care (01) ==
LOC: RAD 12:46
PROVIDERS: PCP Internal Medicine; Visit Provider Internal Medicine Hematology & Oncology
DX: Z78.0 Asymptomatic menopausal state (principal); C50.912 Malignant neoplasm of unspecified site of left female breast
CPT/HCPCS: 77080

== ENCOUNTER 2025-10-01 09:12 | Outpatient (CLI) | payer MEDICARE, BC, SELFPAY | END 2025-10-01 09:13 | disposition home or self-care (01) | LOC: NFLDREF 10-05 02:15 | PROVIDERS: PCP Internal Medicine; Referring Provider Internal Medicine | DX: N30.01 Acute cystitis with hematuria (principal) | CPT/HCPCS: 87086 ==